=== PATIENT | female | born 1975 | race Caucasian/White ===

== ENCOUNTER 2017-02-20 09:13 | Emergency (ER) | payer BC ==
[~2017-02-20] VITALS: Ht 177.8 cm; Wt 78.0 kg
[2017-02-20] MEDS ORDERED: NORCO 5-325 TA1 EACH PO (11:03)
[2017-02-20 11:22] VITALS: BP 126/69
== END 2017-02-20 11:23 | disposition home or self-care (01) ==
LOC: ER 09:13
DX: S63.501A Unspecified sprain of right wrist, initial encounter (principal); Z90.710 Acquired absence of both cervix and uterus; Z88.1 Allergy status to other antibiotic agents; Z88.6 Allergy status to analgesic agent; W22.01XA Walked into wall, initial encounter; Y93.89 Activity, other specified; Y92.89 Other specified places as the place of occurrence of the external cause; Y99.8 Other external cause status